=== PATIENT | female | born 1960 | race Caucasian/White ===

== ENCOUNTER 2019-07-01 11:08 | Observation (INO) | payer BC ==
--- NOTE | 2019-07-01 11:29 | ER Document Report ---
ED Medical Screen (RME) - General Chief Complaint: Dizziness Stated Complaint: SWEATING/DIZZY/HEADACHE Time Seen by Provider: 07/01/19 11:23 Primary Care Provider: DAKOTA BARRAGAN MD [Primary Care Provider] - Follow up as needed - [facility] Notes: 07/01/19 11:26 Patient is a 58-year-old female with a history of hypertension and PTSD who presents complaining of mild headache and mild dizziness at this time. Patient presents with a paper of a timeline of events that occurred starting at 9:30 in the morning today when she was at school. In summary, patient began having sweating and a headache so she laid down for about 15 minutes and when she woke up she was delusional and unaware of her surroundings. She was shaking, irritable, and not wanting to walk or stand on her own. They did notice some slurring of speech and she was sweaty and pale. Since then those symptoms have since significant improved and she only has mild headache and dizziness at this time. No fever or recent illness. No chest pain or shortness of breath. I have treated and performed a rapid initial assessment of this patient. A comprehensive ED assessment and evaluation of the patient, analysis of test results and completion of medical decision making process will be conducted by additional ED providers. PHYSICAL EXAMINATION: GENERAL: Well-appearing, well-nourished and in no acute distress. A&Ox4. Answers questions appropriately. LUNGS: Breath sounds clear to auscultation bilaterally and equal. No wheezes rales or rhonchi. HEART: Regular rate and rhythm without murmurs, rubs, gallops. NEUROLOGICAL: Normal speech, normal gait. NIH 0. GCS 15. Cranial nerves grossly intact. PSYCH: Normal mood, normal affect. - Related Data Allergies/Adverse Reactions: No Known Allergies Allergy (Verified 07/01/19 11:21) Past Medical History - Past Medical History Cardiac Medical History: Reports: Hx Hypertension Denies: Hx Coronary Artery Disease, Hx Heart Attack Pulmonary Medical History: Reports: Hx Pneumonia Denies: Hx Asthma, Hx Bronchitis, Hx COPD Neurological Medical History: Denies: Hx Cerebrovascular Accident, Hx Seizures Musculoskeltal Medical History: Reports Hx Arthritis Past Surgical History: Denies: Hx Hysterectomy, Hx Pacemaker - Immunizations Hx Diphtheria, Pertussis, Tetanus Vaccination: Yes Physical Exam - Vital signs Vitals: Temp Pulse Resp BP Pulse Ox 97.9 F 59 L 16 130/65 H 97 07/01/19 11:16 07/01/19 11:16 07/01/19 11:16 07/01/19 11:16 07/01/19 11:16 Course - Vital Signs Vital signs: Temp Pulse Resp BP Pulse Ox 97.9 F 59 L 16 130/65 H 97 07/01/19 11:16 07/01/19 11:16 07/01/19 11:16 07/01/19 11:16 07/01/19 11:16 Doctor's Discharge - Discharge Referrals: DAKOTA BARRAGAN MD [Primary Care Provider] - Follow up as needed
[2019-07-01 11:56] LABS: ABSOLUTE EOSINOPHILS # (AUTO) 0.1 10^3/uL (0.0-0.6); ABSOLUTE MONOCYTES (AUTO) 0.7 10^3/uL (0.1-1.4); ABSOLUTE NEUT (AUTO) 6.4 10^3/uL (1.7-8.2); BASOPHILS % (AUTO) 0.5 % (0-2); EOSINOPHILS % (AUTO) 0.9 % (0-6); HEMOGLOBIN 11.8 g/dL (12.0-15.5); LYMPHOCYTES % (AUTO) 21.7 % (13-45); MEAN CORPUSCULAR HEMOGLOBIN 25.9 pg (27.0-33.4); MEAN CORPUSCULAR HGB CONC 31.9 g/dL (32.0-36.0); MEAN CORPUSCULAR VOLUME 81 fl (80-97); MONOCYTES % (AUTO) 7.4 % (3-13); PLATELET COUNT 275 10^3/uL (150-450); RED BLOOD COUNT 4.55 10^6/uL (3.72-5.28); RED CELL DISTRIBUTION WIDTH 16.3 % (11.5-14.0); SEGMENTED NEUTROPHILS % (AUTO) 69.5 % (42-78); TOTAL CELLS COUNTED % (AUTO) 100 %; WHITE BLOOD COUNT 9.3 10^3/uL (4.0-10.5)
--- NOTE | 2019-07-01 12:05 | EKG REPORT ---
SEVERITY:- NORMAL ECG - SINUS RHYTHM : Confirmed by: Ronit Abebe MD 01-Jul-2019 12:05:05
[2019-07-01 12:12] LABS: INTERNATIONAL RATION (INR) 0.97; PROTHROMBIN TIME 12.8 SEC (11.4-15.4)
[2019-07-01 12:13] LABS: PARTIAL THROMBOPLASTIN TIME 29.3 SEC (23.5-35.8)
[2019-07-01 12:15] LABS: ALBUMIN 4.2 g/dL (3.5-5.0); ALKALINE PHOSPHATASE 89 U/L (38-126); ANION GAP 8 (5-19); ASPARTATE AMINO TRANSFERASE 18 U/L (14-36); BILIRUBIN,DIRECT 0.1 mg/dL (0.0-0.4); BILIRUBIN,TOTAL 0.2 mg/dL (0.2-1.3); BLOOD UREA NITROGEN 20 mg/dL (7-20); CALCIUM 9.9 mg/dL (8.4-10.2); CARBON DIOXIDE 32 mmol/L (22-30); CHLORIDE 99 mmol/L (98-107); GLUCOSE 164 mg/dL (75-110); TOTAL PROTEIN 6.8 g/dL (6.3-8.2)
--- NOTE | 2019-07-01 12:23 | RADIOLOGY REPORT (SQ) ---
EXAM DESCRIPTION: CHEST SINGLE VIEW COMPLETED DATE/TIME: 07/01/2019 12:06 pm REASON FOR STUDY: dizziness COMPARISON: None. EXAM PARAMETERS: NUMBER OF VIEWS: One view. TECHNIQUE: Single frontal radiographic view of the chest acquired. RADIATION DOSE: NA LIMITATIONS: None. FINDINGS: LUNGS AND PLEURA: No opacities, masses or pneumothorax. No pleural effusion. MEDIASTINUM AND HILAR STRUCTURES: No masses. Contour normal. HEART AND VASCULAR STRUCTURES: Heart normal in size. Normal vasculature. BONES: No acute findings. HARDWARE: None in the chest. OTHER: No other significant finding. IMPRESSION: NO ACUTE RADIOGRAPHIC FINDING IN THE CHEST. TECHNICAL DOCUMENTATION: JOB ID: [id number] [employer] All Rights Reserved Reading location - IP/workstation name: [email or web address]
--- NOTE | 2019-07-01 12:45 | RADIOLOGY REPORT (SQ) ---
EXAM DESCRIPTION: CT HEAD WITHOUT COMPLETED DATE/TIME: 07/01/2019 12:23 pm REASON FOR STUDY: dizziness COMPARISON: 06/17/2011 TECHNIQUE: Axial images acquired through the brain without intravenous contrast. Images reviewed wi th bone, brain and subdural windows. Additional sagittal and coronal reconstructions were generated. Images stored on PACS. All CT scanners at this facility use dose modulation, iterative reconstruction, and/or weight based d osing when appropriate to reduce radiation dose to as low as reasonably achievable (ALARA). [facility]: Dose Right [facility]: CareDose [facility]: Dose Right [facility]: Teradose 4D [facility]: [employer] RADIATION DOSE: CT Rad equipment meets quality standard of care and radiation dose reduction techniq ues were employed. CTDIvol: 53.2 mGy. DLP: 1070 mGy-cm. mGy. LIMITATIONS: None. FINDINGS: VENTRICLES: Normal size and contour. CEREBRUM: No masses. No hemorrhage. No midline shift. No evidence for acute infarction. Normal gra y/white matter differentiation. No areas of low density in the white matter. CEREBELLUM: No masses. No hemorrhage. No alteration of density. No evidence for acute infarction. EXTRAAXIAL SPACES: No fluid collections. No masses. ORBITS AND GLOBE: No intra- or extraconal masses. Normal contour of globe without masses. CALVARIUM: No fracture. PARANASAL SINUSES: No fluid or mucosal thickening. SOFT TISSUES: No mass or hematoma. OTHER: No other significant finding. IMPRESSION: No acute intracranial pathology. EVIDENCE OF ACUTE STROKE: NO. COMMENT: Quality ID # [id number]: Final reports with documentation of one or more dose reduction techniques (e.g., Automated exposure control, adjustment of the mA and/or kV according to patient size, use of iterative reconstruction technique) TECHNICAL DOCUMENTATION: JOB ID: [id number] [employer]- All Rights Reserved Reading location - IP/workstation name: [id number]
[2019-07-01 12:56] LABS: APPEARANCE,URINE CLEAR; BILIRUBIN,URINE NEGATIVE (NEGATIVE); COLOR,URINE STRAW; GLUCOSE, URINE NEGATIVE (NEGATIVE); KETONES,URINE NEGATIVE (NEGATIVE); LEUKOCYTE ESTERASE,URINE NEGATIVE (NEGATIVE); NITRITE,URINE NEGATIVE (NEGATIVE); PROTEIN,URINE NEGATIVE (NEGATIVE); URINE SPECIFIC GRAVITY 1.003; UROBILINOGEN,URINE NEGATIVE mg/dL (<2.0)
[2019-07-01] MEDS ORDERED: ASPIRIN 325 MG TABLET PO ONE (14:58)
--- NOTE | 2019-07-01 15:01 | ER Document Report ---
ED General - General Chief Complaint: Headache Stated Complaint: SWEATING/DIZZY/HEADACHE Time Seen by Provider: 07/01/19 11:23 Primary Care Provider: DAKOTA BARRAGAN MD [NO LOCAL MD] - Follow up as needed TRAVEL OUTSIDE OF THE [place] IN LAST 30 DAYS: No - HPI Notes: Patient is a 58-year-old female who presents to the emergency department for evaluation. 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 She was feeling dizzy and weak. She went to rest. According to witnesses, the patient became "delusional." She was unaware of her surroundings, she was shaking, almost abusive. She had slurred speech. She was unable to stand on her own. Her symptoms improved, she is unable to tell me how long her symptoms are present. She complains of a headache, that she states is been present for the last several hours. She describes it as aching, currently rates it a 6 out of 10. Is not worsened with bright light or loud noise. - Related Data Allergies/Adverse Reactions: No Known Allergies Allergy (Verified 07/01/19 11:21) Home Medications: Lisinopril/HCTZ, omeprazole, zoloft Past Medical History - General Information source: Patient - Social History Smoking Status: Never Smoker Chew tobacco use (# tins/day): No Frequency of alcohol use: None Drug Abuse: None Family History: Reviewed & Not Pertinent Patient has suicidal ideation: No Patient has homicidal ideation: No - Past Medical History Cardiac Medical History: Reports: Hx Hypertension Denies: Hx Coronary Artery Disease, Hx Heart Attack Pulmonary Medical History: Reports: Hx Pneumonia Denies: Hx Asthma, Hx Bronchitis, Hx COPD Neurological Medical History: Denies: Hx Cerebrovascular Accident, Hx Seizures Musculoskeletal Medical History: Reports Hx Arthritis Past Surgical History: Denies: Hx Hysterectomy, Hx Pacemaker - Immunizations Hx Diphtheria, Pertussis, Tetanus Vaccination: Yes Review of Systems - Review of Systems Constitutional: See HPI EENT: No symptoms reported Cardiovascular: No symptoms reported Respiratory: No symptoms reported Gastrointestinal: No symptoms reported Genitourinary: No symptoms reported Musculoskeletal: No symptoms reported Skin: No symptoms reported Neurological/Psychological: See HPI Physical Exam - Vital signs Vitals: Temp Pulse Resp BP Pulse Ox 97.9 F 59 L 16 130/65 H 97 07/01/19 11:16 07/01/19 11:16 07/01/19 11:16 07/01/19 11:16 07/01/19 11:16 - Notes Notes: Vital signs reviewed, please refer to chart. Head is normocephalic, atraumatic. Pupils equal round, reactive to light. Neck is supple without meningismus. Heart is regular rate and rhythm. Lungs are clear to auscultation bilaterally. Abdomen is soft, nontender, normoactive bowel sounds throughout. Extremities without cyanosis, clubbing. Posterior calves are nontender. Peripheral pulses are equal. Skin is warm and dry. Patient is awake, alert, oriented x3. Cranial nerves II - XII are grossly intact without focal neurological deficits. Strength is plus 5 out of 5 bilateral upper and lower extremities. Sensation is intact. Reflexes symmetrical. Intact [id number], rapid alternating movements, [id number]. Course - Re-evaluation Re-evalutation: 07/01/19 15:03 Patient presents emergency department for evaluation. She was extremely diaphoretic, then presented with altered mental status, slurred speech, inability to stand. My primary concern at this point would be a TIA. She currently has a normal neurological exam. Her vital signs are unremarkable. The patient has never had a TIA before, but she is obese, has high blood pressure. Will contact medicine for admission. 07/01/19 15:[address] Zheng, he will admit the patient for further care. - Vital Signs Vital signs: Temp Pulse Resp BP Pulse Ox 97.9 F 59 L 14 130/65 H 98 07/01/19 11:16 07/01/19 11:16 07/01/19 14:00 07/01/19 11:16 07/01/19 14:00 - Laboratory Result Diagrams: 07/01/19 11:43 07/01/19 11:43 Laboratory results interpreted by me: 07/01/19 07/01/19 11:43 11:43 Hgb 11.8 L MCH 25.9 L MCHC 31.9 L RDW 16.3 H Carbon Dioxide 32 H Glucose 164 H - Diagnostic Test Radiology reviewed: Reports reviewed Radiology results interpreted by me: 07/01/19 15:[address] 07/01/19 11:29 IMPRESSION: No acute intracranial pathology. EVIDENCE OF ACUTE STROKE: NO. Chest X-Ray 07/01/19 11:30 IMPRESSION: NO ACUTE RADIOGRAPHIC FINDING IN THE CHEST. - EKG Interpretation by Me Additional EKG results interpreted by me: 07/01/19 15:02 Sinus bradycardia with a rate of 58 bpm. Normal axis and intervals, no acute ST changes concerning for ischemia or infarction. Discharge - Discharge Clinical Impression: TIA (transient ischemic attack) Condition: Stable Disposition: ADMITTED INPATIENT Admitting Provider: Marce (Hospitalist) Unit Admitted: [facility] Referrals: DAKOTA BARRAGAN MD [NO LOCAL MD] - Follow up as needed
[2019-07-01] MEDS ORDERED: HYDRALAZINE HCL INJ/PF 20 MG/1 ML SDV IV PRN (16:16)
--- NOTE | 2019-07-01 16:37 | PDOC H&P ---
History of Present Illness Admission Date/PCP: 07/01/19 15:23 RENE ABDALLA MD Patient complains of: slurred speech, confusion History of Present Illness: BLANCHE SANTAMARIA is a 58 year old female with no significant past medical history aside from hypertension and obesity who was brought in due to slurred speech and confusion. Patient says that she has been apparently well. 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 She says she felt loopy and generally weak. She says she also had a headache and became diaphoretic. She says that the next thing she know was there were a few coworkers holding on to her. She reportedly became very confused, agitated and combative for a few minutes and was noted to have slurred speech. She says she could not remember this episode happening. She says they did not say she passed out but when she "regained her consciousness" and so her coworkers are on her, she was well oriented and denies any urinary or bowel incontinence. No reported seizure-like activity. She says her blood pressures were running high last Monday in the 180/120s at home. Past Medical History Cardiac Medical History: Reports: Hypertension Denies: Coronary Artery Disease, Myocardial Infarction Pulmonary Medical History: Reports: Pneumonia Denies: Asthma, Bronchitis, Chronic Obstructive Pulmonary Disease (COPD) Neurological Medical History: Denies: Seizures Musculoskeltal Medical History: Reports: Arthritis Hematology: Denies: Anemia Past Surgical History Past Surgical History: Denies: Hysterectomy, Pacemaker Social History Smoking Status: Never Smoker Family History Family History: Reviewed & Not Pertinent Parental Family History Reviewed: Yes - no premature CAD Children Family History Reviewed: No Sibling(s) Family History Reviewed.: No Medication/Allergy Allergies/Adverse Reactions: No Known Allergies Allergy (Verified 07/01/19 11:21) Review of Systems All systems: reviewed and no additional remarkable complaints except as stated - as mentioned in HPI Physical Exam Vital Signs: Temp Pulse Resp BP Pulse Ox 97.9 F 59 L 97 H 130/65 H 98 07/01/19 11:16 07/01/19 11:16 07/01/19 15:00 07/01/19 11:16 07/01/19 14:00 Intake & Output 06/30/19 07/01/19 07/02/19 06:59 06:59 06:59 Weight 245 lb 5.992 oz General appearance: PRESENT: no acute distress, well-developed, well-nourished Head exam: PRESENT: atraumatic, normocephalic Eye exam: PRESENT: conjunctiva pink, EOMI, PERRLA. ABSENT: scleral icterus Ear exam: PRESENT: normal external ear exam Mouth exam: PRESENT: moist, tongue midline Neck exam: ABSENT: carotid bruit, JVD, lymphadenopathy, thyromegaly Respiratory exam: PRESENT: clear to auscultation jasmin. ABSENT: rales, rhonchi, wheezes Cardiovascular exam: PRESENT: RRR. ABSENT: diastolic murmur, rubs, systolic murmur Pulses: PRESENT: normal dorsalis pedis pul GI/Abdominal exam: PRESENT: normal bowel sounds, soft. ABSENT: distended, guarding, mass, organolmegaly, rebound, tenderness Rectal exam: PRESENT: deferred Extremities exam: PRESENT: full ROM. ABSENT: calf tenderness, clubbing, pedal edema Neurological exam: PRESENT: alert, awake, oriented to person, oriented to place, oriented to time, oriented to situation, CN II-XII grossly intact. ABSENT: motor sensory deficit Results Laboratory Results: 07/01/19 11:43 07/01/19 11:43 07/01/19 07/01/19 07/01/19 11:43 11:43 12:24 WBC 9.3 RBC 4.55 Hgb 11.8 L Hct 37.0 MCV 81 MCH 25.9 L MCHC 31.9 L RDW 16.3 H Plt Count 275 Seg Neutrophils % 69.5 Sodium 139.4 Potassium 4.0 Chloride 99 Carbon Dioxide 32 H Anion Gap 8 BUN 20 Creatinine 0.61 Est GFR ( Amer) > 60 Glucose 164 H Calcium 9.9 Total Bilirubin 0.2 AST 18 Alkaline Phosphatase 89 Total Protein 6.8 Albumin 4.2 Urine Color STRAW Urine Appearance CLEAR Urine pH 6.0 Ur Specific [place] 1.003 Urine Protein NEGATIVE Urine Glucose (UA) NEGATIVE Urine Ketones NEGATIVE Urine Blood NEGATIVE Urine Nitrite NEGATIVE Ur Leukocyte Esterase NEGATIVE Urine WBC (Auto) 1 Urine RBC (Auto) 0 07/01/19 11:43 Troponin I < 0.012 Impressions: Head CT 07/01/19 11:29 IMPRESSION: No acute intracranial pathology. EVIDENCE OF ACUTE STROKE: NO. Chest X-Ray 07/01/19 11:30 IMPRESSION: NO ACUTE RADIOGRAPHIC FINDING IN THE CHEST. Assessment and Plan - Diagnosis (1) TIA (transient ischemic attack) Is this a current diagnosis for this admission?: Yes Plan: Possible TIA. CT head is negative. Neurologic examination upon encounter is completely normal. Will admit patient to telemetry. Check lipid panel. Will also order for a carotid Doppler. Will start patient aspirin and low-dose statin. She is hesitant about moderate to high dose consider medications. (2) HTN (hypertension) Is this a current diagnosis for this admission?: Yes Plan: Will start patient on losartan. (3) Obesity Is this a current diagnosis for this admission?: Yes Plan: BMI of 44.9. Counseled on weight loss and lifestyle modifications. - Time Time Spent with patient: 25-34 minutes
--- NOTE | 2019-07-01 16:38 | ADVANCED CARE ---
- Diagnosis (1) TIA (transient ischemic attack) Diagnosis Current: Yes (2) HTN (hypertension) Diagnosis Current: Yes (3) Obesity Diagnosis Current: Yes Resuscitation Status: Do Not Resuscitate Discussion: Discussed with patient. She verbalized that she is a DNR/DNI. She does not prefer to receive any chest compressions, defibrillation or mechanical ventilation if the need arises. When asked about her surrogate medical decision maker, she says she is but she does not want her to make that decision for her. She says he will insist on keeping her a full code. She says she would rather have her sister, Kiah Lomeli be her surrogate medical decision maker.
[2019-07-01 17:24] LABS: CHOLESTEROL 174.97 mg/dL (0-200); TRIGLYCERIDES 117 mg/dL (<150)
[2019-07-01 17:35] LABS: DIRECT LDL 99 mg/dL (<100)
--- NOTE | 2019-07-01 17:47 | ADVANCED CARE ---
- Diagnosis (1) TIA (transient ischemic attack) Diagnosis Current: Yes (2) HTN (hypertension) Diagnosis Current: Yes (3) Obesity Diagnosis Current: Yes Resuscitation Status: Full Code Discussion: CODE STATUS was rediscussed after patient initially refused to have an IV inserted as she thought there is no point of getting an IV if she is a DNR. We rediscussed this and then and she said that after rethinking it, she expressed that she wants us to attempt resuscitation including chest compressions, defibrillation or temporary mechanical ventilation if she goes into cardiac or respiratory arrest. She verbalizes that she does not want to be on long-term ventilation. Her CODE STATUS will be switched from DNR to full code at this time.
[2019-07-01] MEDS: HEPARIN SOD (PORCINE) 5,000 UNIT/ML 1 ML VIAL SUBCUT SCH (21:35)
[2019-07-01] MEDS ORDERED: ATORVASTATIN CALCIUM 20 MG TABLET PO SCH (22:00)
[2019-07-02] MEDS ORDERED: INFLUENZA QUAD (6MOS+) 2019-20 VAC 0.5 ML SYR IM ONE (06:20)
[2019-07-02 09:06] VITALS: BP 106/67
[2019-07-02] MEDS: HEPARIN SOD (PORCINE) 5,000 UNIT/ML 1 ML VIAL SUBCUT SCH (09:11)
--- NOTE | 2019-07-02 09:18 | PDOC DISCHARGE SUMMARY ---
Impression - Admit/DC Date/PCP Admission Date/Primary Care Provider: 07/01/19 15:23 RENE ABDALLA MD Discharge Date: 07/02/19 - Additional Information Resuscitation Status: Full Code Discharge Activity: Activity As Tolerated Referrals: DAKOTA BARRAGAN MD [NO LOCAL MD] - Follow up as needed Prescriptions: Atorvastatin Calcium [Lipitor 20 mg Tablet] 20 mg PO QHS #30 tablet Home Medications: Diclofenac Sodium [Voltaren 50 mg Tablet.dr] 50 mg PO QHS 07/01/19 Losartan/Hydrochlorothiazide [Hyzaar 100-25 Tablet] 1 tab PO QHS 07/01/19 Sertraline HCl [Zoloft] 50 mg PO QPM 07/01/19 Atorvastatin Calcium [Lipitor 20 mg Tablet] 20 mg PO QHS #30 tablet 07/02/19 History of Present Illiness History of Present Illness: BLANCHE SANTAMARIA is a 58 year old female who presented to the ER with slurred speech and confusion. Hospital Course Hospital Course: Patient was seen in the ER obtain CAT scan, carotid Doppler, lipid panel. Patient had completely normal neurological exam in the ER as well. Patient states she was feeling apparently well she is teaches as a air cargo specialist stated on the date of admission around 9 AM she felt loopy and generally weak. She also states she had a headache and became diaphoretic. She reported became confused agitated and combative for a few minutes and was noted to have slurred speech at that time. Patient states that she did pass out but when she regained consciousness she was well oriented and denied any urinary or bowel incontinence. Patient had a negative work-up at this time. I will obtain a MRI prior to discharge I am awaiting results of her carotid Doppler. She has a relatively low suspicion of stroke at this time so I do not feel uncomfortable letter to go home at this time and awaiting test results. I will have her follow-up with her primary care physician 1 week. Patient also has a history of gastric bypass and needs to okay with her gastric bypass surgeon low-dose aspirin. I will continue patient on atorvastatin 20 mg p.o. daily. I will con tinue to follow patient's diagnostic tools and if they come positive I will notify patient of next steps. Physical Exam Vital Signs: Temp Pulse Resp BP Pulse Ox 98.4 F 71 16 106/67 100 10/01/19 08:35 07/02/19 08:35 07/02/19 08:35 07/02/19 08:35 07/02/19 08:35 Intake & Output 07/01/19 07/02/19 07/03/19 06:59 06:59 06:59 Intake Total 1540 Balance 1540 Weight 114.1 kg General appearance: PRESENT: no acute distress, well-developed, well-nourished Head exam: PRESENT: atraumatic, normocephalic Eye exam: PRESENT: conjunctiva pink, EOMI, PERRLA. ABSENT: scleral icterus Ear exam: PRESENT: normal external ear exam Mouth exam: PRESENT: moist, tongue midline Neck exam: ABSENT: carotid bruit, JVD, lymphadenopathy, thyromegaly Respiratory exam: PRESENT: clear to auscultation jasmin. ABSENT: rales, rhonchi, wheezes Cardiovascular exam: PRESENT: RRR. ABSENT: diastolic murmur, rubs, systolic murmur Pulses: PRESENT: normal dorsalis pedis pul Vascular exam: PRESENT: normal capillary refill GI/Abdominal exam: PRESENT: normal bowel sounds, soft. ABSENT: distended, guarding, mass, organolmegaly, rebound, tenderness Rectal exam: PRESENT: deferred Extremities exam: PRESENT: full ROM. ABSENT: calf tenderness, clubbing, pedal edema Neurological exam: PRESENT: alert, awake, oriented to person, oriented to place, oriented to time, oriented to situation, CN II-XII grossly intact. ABSENT: motor sensory deficit Psychiatric exam: PRESENT: appropriate affect, normal mood. ABSENT: homicidal ideation, suicidal ideation Skin exam: PRESENT: dry, intact, warm. ABSENT: cyanosis, rash Results Laboratory Results: WBC 9.3 10^3/uL (4.0-10.5) 07/01/19 11:43 RBC 4.55 10^6/uL (3.72-5.28) 07/01/19 11:43 Hgb 11.8 g/dL (12.0-15.5) L 07/01/19 11:43 Hct 37.0 % (36.0-47.0) 07/01/19 11:43 MCV 81 fl (80-97) 07/01/19 11:43 MCH 25.9 pg (27.0-33.4) L 07/01/19 11:43 MCHC 31.9 g/dL (32.0-36.0) L 07/01/19 11:43 RDW 16.3 % (11.5-14.0) H 07/01/19 11:43 Plt Count 275 10^3/uL (150-450) 07/01/19 11:43 Lymph % (Auto) 21.7 % (13-45) 07/01/19 11:43 [place] % (Auto) 7.4 % (3-13) 07/01/19 11:43 Eos % (Auto) 0.9 % (0-6) 07/01/19 11:43 Baso % (Auto) 0.5 % (0-2) 07/01/19 11:43 Absolute Neuts (auto) 6.4 10^3/uL (1.7-8.2) 07/01/19 11:43 Absolute Lymphs (auto) 2.0 10^3/uL (0.5-4.7) 07/01/19 11:43 Absolute Monos (auto) 0.7 10^3/uL (0.1-1.4) 07/01/19 11:43 Absolute Eos (auto) 0.1 10^3/uL (0.0-0.6) 07/01/19 11:43 Absolute Basos (auto) 0.0 10^3/uL (0.0-0.2) 07/01/19 11:43 Seg Neutrophils % 69.5 % (42-78) 07/01/19 11:43 PT 12.8 SEC (11.4-15.4) 07/01/19 11:43 INR 0.97 07/01/19 11:43 APTT 29.3 SEC (23.5-35.8) 07/01/19 11:43 Sodium 139.4 mmol/L (137-145) 07/01/19 11:43 Potassium 4.0 mmol/L (3.6-5.0) 07/01/19 11:43 Chloride 99 mmol/L (98-107) 07/01/19 11:43 Carbon Dioxide 32 mmol/L (22-30) H 07/01/19 11:43 Anion Gap 8 (5-19) 07/01/19 11:43 BUN 20 mg/dL (7-20) 07/01/19 11:43 Creatinine 0.61 mg/dL (0.52-1.25) 07/01/19 11:43 Est GFR ( Amer) > 60 (>60) 07/01/19 11:43 Est GFR (MDRD) Non-Af > 60 (>60) 07/01/19 11:43 Glucose 164 mg/dL (75-110) H 07/01/19 11:43 Calcium 9.9 mg/dL (8.4-10.2) 07/01/19 11:43 Total Bilirubin 0.2 mg/dL (0.2-1.3) 07/01/19 11:43 Direct Bilirubin 0.1 mg/dL (0.0-0.4) 07/01/19 11:43 Neonat Total Bilirubin Not Reportable 07/01/19 11:43 Neonat Direct Bilirubin Not Reportable 07/01/19 11:43 Neonat Indirect Bili Not Reportable 07/01/19 11:43 AST 18 U/L (14-36) 07/01/19 11:43 ALT 18 U/L (<35) 07/01/19 11:43 Alkaline Phosphatase 89 U/L (38-126) 07/01/19 11:43 Troponin I < 0.012 ng/mL 07/01/19 11:43 Total Protein 6.8 g/dL (6.3-8.2) 07/01/19 11:43 Albumin 4.2 g/dL (3.5-5.0) 07/01/19 11:43 Triglycerides 117 mg/dL (<150) 07/01/19 11:43 Cholesterol 174.97 mg/dL (0-200) 07/01/19 11:43 LDL Cholesterol Direct 99 mg/dL (<100) 07/01/19 11:43 VLDL Cholesterol 23.0 mg/dL (10-31) 07/01/19 11:43 HDL Cholesterol 59 mg/dL (>40) 07/01/19 11:43 Urine Color STRAW 07/01/19 12:24 Urine Appearance CLEAR 07/01/19 12:24 Urine pH 6.0 (5.0-9.0) 07/01/19 12:24 Ur Specific [place] 1.003 07/01/19 12:24 Urine Protein NEGATIVE mg/dL (NEGATIVE) 07/01/19 12:24 Urine Glucose (UA) NEGATIVE mg/dL (NEGATIVE) 07/01/19 12:24 Urine Ketones NEGATIVE mg/dL (NEGATIVE) 07/01/19 12:24 Urine Blood NEGATIVE (NEGATIVE) 07/01/19 12:24 Urine Nitrite NEGATIVE (NEGATIVE) 07/01/19 12:24 Urine Bilirubin NEGATIVE (NEGATIVE) 07/01/19 12:24 Urine Urobilinogen NEGATIVE mg/dL (<2.0) 07/01/19 12:24 Ur Leukocyte Esterase NEGATIVE (NEGATIVE) 07/01/19 12:24 Urine WBC (Auto) 1 /HPF 07/01/19 12:24 Urine RBC (Auto) 0 /HPF 07/01/19 12:24 Squamous Epi Cells Auto <1 /HPF 07/01/19 12:24 Urine Mucus (Auto) RARE /LPF 07/01/19 12:24 Urine Ascorbic Acid NEGATIVE (NEGATIVE) 07/01/19 12:24 07/01/19 11:43 Troponin I < 0.012 Impressions: Head CT 07/01/19 11:29 IMPRESSION: No acute intracranial pathology. EVIDENCE OF ACUTE STROKE: NO. Chest X-Ray 07/01/19 11:30 IMPRESSION: NO ACUTE RADIOGRAPHIC FINDING IN THE CHEST. Plan Time Spent: Greater than 30 Minutes Stroke Is this a Stroke Patient?: No Acute Heart Failure - Is this a Heart Failure Patient?: No
[2019-07-02] MEDS ORDERED: LOSARTAN POTASSIUM 25 MG TABLET PO SCH (10:00)
[2019-07-02] MEDS ORDERED: ASPIRIN 81 MG TABLET, CHEWABLE PO SCH (10:00)
--- NOTE | 2019-07-02 11:34 | RADIOLOGY REPORT (SQ) ---
EXAM DESCRIPTION: MRI HEAD WITHOUT COMPLETED DATE/TIME: 07/02/2019 11:07 am REASON FOR STUDY: TIA COMPARISON: CT brain 07/01/2019, 06/17/2011 MRI brain 06/17/2011 TECHNIQUE: Multiplanar imaging includes non-contrasted T1, T2, FLAIR, and diffusion with ADC map seq uences. Images stored on PACS. LIMITATIONS: None. FINDINGS: ANATOMY: No anomalies. Normal vascular flow voids. Pituitary fossa normal. CSF SPACES: Normal in size and contour. No hemorrhage. CEREBRUM: Sulci and gyri normal in size and contour. Normal white matter signal on FLAIR imaging. No evidence of hemorrhage, mass, or extraaxial fluid collection. POSTERIOR FOSSA: No signal alteration. No hemorrhage. No edema, masses or mass effect. Internal toyin tory canals, cerebello-pontine angles, mastoids normal. DIFFUSION IMAGING: Negative for acute or sub-acute infarction. ORBITS: No masses. Globes normal. PARANASAL SINUSES: No fluid levels. Mucosa normal. OTHER: No other significant finding. IMPRESSION: NORMAL MRI OF THE BRAIN WITHOUT INTRAVENOUS GADOLINIUM CONTRAST. EVIDENCE OF ACUTE STROKE: NO. TECHNICAL DOCUMENTATION: JOB ID: [id number] [employer]- All Rights Reserved Reading location - IP/workstation name: [email or web address]
--- NOTE | 2019-07-02 11:44 | RADIOLOGY REPORT (SQ) ---
EXAM DESCRIPTION: CAROTID DOPPLER COMPLETED DATE/TIME: 07/01/2019 7:13 pm REASON FOR STUDY: TIA COMPARISON: MRI brain 07/02/2019 CT brain 07/01/2019 TECHNIQUE: Grayscale ultrasound, Doppler velocity and spectra, and color Doppler images acquired of the extra-cranial carotid and vertebral arteries. Images stored on PACS. LIMITATIONS: None. FINDINGS: RIGHT CAROTID CCA Velocities: Within normal limits. Right common carotid artery peak systolic velocity 0.78 m/sec ICA Velocities Peak systolic 0.73 m/s. End diastolic 0.19 m/s. Proximal ICA/CCA peak systolic ratio 0.9. Spectra normal. No significant plaque. LEFT CAROTID CCA Velocities: Within normal limits. Left common carotid artery peak systolic velocity 0.9 m/sec ICA Velocities Peak systolic 0.89 m/s. End diastolic 0.34 m/s. Proximal ICA/CCA peak systolic ratio 1.1. Spectra normal. No significant plaque. VERTEBRAL ARTERIES: Antegrade flow. Normal waveforms. SUBCLAVIAN ARTERIES: Not evaluated OTHER: No other significant finding. IMPRESSION: NO HEMODYNAMICALLY SIGNIFICANT STENOSIS. COMMENT: Quality ID #[id number]: Velocity criteria are extrapolated from the diameter data as defined by t he Society of Radiologists in Ultrasound Consensus Conference. Radiology 2003: 229; 340-346. TECHNICAL DOCUMENTATION: JOB ID: [id number] [employer]- All Rights Reserved Reading location - IP/workstation name: [email or web address]
== END 2019-07-02 12:19 | disposition home or self-care (01) ==
LOC: ER 11:08 → INTOOBSV 15:23 → EH 15:23 → 3W 17:47
PROVIDERS: ADMIT Internal Medicine; ATTEND Internal Medicine
DX: G45.9 Transient cerebral ischemic attack, unspecified (principal); I10 Essential (primary) hypertension; E66.9 Obesity, unspecified; R61 Generalized hyperhidrosis; R41.0 Disorientation, unspecified; R45.1 Restlessness and agitation; R55 Syncope and collapse; F91.8 Other conduct disorders; R51 Headache; R25.1 Tremor, unspecified; R00.1 Bradycardia, unspecified; F22 Delusional disorders; Z98.84 Bariatric surgery status; Z79.899 Other long term (current) drug therapy; Z68.41 Body mass index [BMI] 40.0-44.9, adult; R29.700 NIHSS score 0
CPT/HCPCS: 93005; 99285; 36415; 85025; 85610; 85730; 80053; 81001; 84484; 80061; 93880; 70551; 71045; 70450; 93010; G0378 ×3; J1644; J3490 ×2